=== PATIENT | male | born 1960 | race Caucasian/White ===

== ENCOUNTER 2018-05-28 07:20 | Day surgery (SDC) | payer OTHER ==
[~2018-05-28] VITALS: Ht 180.3 cm; Wt 78.5 kg
[~2018-05-28 07:20] MED LIST: ETAN50I; FOLI1 PO; IBUP800 PO; LISI5 PO; SYNTHROID175 MCG PO
[2018-05-28] MEDS ORDERED: LOSA50 (07:50)
[2018-05-28] MEDS ORDERED: METO50ER (07:50)
[2018-05-28] MEDS ORDERED: METF500C (07:51)
[2018-05-28] MEDS ORDERED: METTREX2.5 (07:51)
== END 2018-05-28 09:52 | disposition home or self-care (01) ==
LOC: ORSCSDS 07:20
PROVIDERS: Surgery
PROC: 0DBK8ZX Excision of Ascending Colon, Via Natural or Artificial Opening Endoscopic, Diagnostic (ICD-10-PCS; principal; 2018-05-28 08:30)
PROC: 0DBP8ZX Excision of Rectum, Via Natural or Artificial Opening Endoscopic, Diagnostic (ICD-10-PCS; principal; 2018-05-28 08:30)
DX: Z12.11 Encounter for screening for malignant neoplasm of colon (principal); D12.2 Benign neoplasm of ascending colon; Z86.010 Personal history of colon polyps; K62.1 Rectal polyp; K57.30 Diverticulosis of large intestine without perforation or abscess without bleeding; R73.03 Prediabetes; E03.9 Hypothyroidism, unspecified; I10 Essential (primary) hypertension; F17.210 Nicotine dependence, cigarettes, uncomplicated; Z79.84 Long term (current) use of oral hypoglycemic drugs; Z79.899 Other long term (current) drug therapy
CPT/HCPCS: 82947; 88305; J7120

== ENCOUNTER 2020-01-31 11:33 | Inpatient (IN) | payer OTHER ==
[~2020-01-31] VITALS: Ht 175.3 cm; Wt 78.2 kg
[~2020-01-31 11:33] MED LIST changes: +LOSA50; +METF500C; +METO50ER; +METTREX2.5
[2020-01-31] MEDS ORDERED: METO100ER PO (12:43)
[2020-01-31] MEDS ORDERED: Synthroid200 MCG PO (12:43)
[2020-01-31] MEDS ORDERED: Methotrexate2.5 MG PO (12:44)
[2020-01-31] MEDS ORDERED: FOLI1 PO (12:44)
[2020-01-31 12:51] LABS: BASOPHILS ABSOLUTE AUTO 0.09 K/mm3 (0.00-0.23); BASOPHILS PERCENT AUTO 1 % (0-2); EOSINOPHILS ABSOLUTE AUTO 0.35 K/mm3 (0.00-0.68); EOSINOPHILS PERCENT AUTO 4 % (0-6); Hemoglobin 16.7 g/dL (13.5-17.5); IMMATURE GRAN ABSOLUTE AUTO 0.02 K/mm3 (0.00-0.10); IMMATURE GRAN PERCENT AUTO 0 % (0-1); LYMPHOCYTES ABSOLUTE AUTO 2.03 K/mm3 (0.84-5.20); LYMPHOCYTES PERCENT AUTO 24 % (21-46); MONOCYTES ABSOLUTE AUTO 0.92 K/mm3 (0.16-1.47); MONOCYTES PERCENT AUTO 11 % (4-13); Mean Corpuscular HGB 30.2 pg (26.0-34.0); Mean Corpuscular HGB Conc 32.1 g/dL (31.5-36.5); Mean Corpuscular Volume 94 fL (80-100); Mean Platelet Volume 9.5 fL (9.1-12.4); NEUTROPHILS ABSOLUTE AUTO 5.18 K/mm3 (1.96-9.15); NEUTROPHILS PERCENT AUTO 60 % (41-73); Platelet Count 279 K/mm3 (150-400); RDW Coefficient Variation 13.2 % (11.7-14.2); RDW Standard Deviation 46.5 fL (35.1-46.3); Red Blood Cell Count 5.53 M/mm3 (4.30-5.90); White Blood Cell Count 8.59 K/mm3 (4.00-11.30)
[2020-01-31 13:01] LABS: International Normalized Ratio 1.03
[2020-01-31 13:15] LABS: Alanine Aminotransfer (ALT/SGP 20 U/L (12-78); Albumin, Blood 3.3 g/dL (3.4-5.0); Albumin/Globulin Ratio 0.7 (0.8-1.8); Alk Phos 76 U/L (50-136); Anion Gap 4 mmol/L (6-16); Aspartate Aminotrans (AST/SGOT 18 U/L (12-37); Bilirubin, Total 0.4 mg/dL (0.1-1.0); Blood Urea Nitrogen 11 mg/dL (8-24); Bun/Creatinine Ratio 15.5 (12.0-20.0); CO2, Blood 27 mmol/L (21-32); Calcium, Blood 8.9 mg/dL (8.5-10.1); Chloride, Blood 107 mmol/L (98-108); Creatinine, Blood 0.71 mg/dL (0.60-1.20); Globulin, Blood 4.8 g/dL (2.2-4.0); Glomerular Filtration Rate >60 (60-); Glucose, Blood 165 mg/dL (70-99); Sodium, Blood 138 mmol/L (136-145); Total Protein, Blood 8.1 g/dL (6.4-8.2)
[2020-01-31] MEDS ORDERED: ENBREL50 MG/1 M2 SC (13:19)
--- NOTE | 2020-01-31 17:37 | NUR ---
SHIFT SUMMARY PT ALERT AND ORIENTED. VS STABLE. HR NSR. PT DENIES ANY PAIN. PT REPORTS SLIGHT DOUBLE VISION AND DIFFICULTY READING. PT ABLE TO COMMUNICATE NEEDS, BUT OCCASIONAL SLURRED SPEECH AND DIFFICULTY EXPRESSING HIS NEEDS. PT INDEPENDENT IN THE ROOM. PLAN FOR MRI THIS AFTERNOON. WILL CONTINUE TO MONITOR AND REPORT TO ONCOMING RN. CALL LIGHT IN REACH.
[2020-02-01 03:54] LABS: BASOPHILS ABSOLUTE AUTO 0.12 K/mm3 (0.00-0.23); BASOPHILS PERCENT AUTO 2 % (0-2); EOSINOPHILS ABSOLUTE AUTO 0.52 K/mm3 (0.00-0.68); EOSINOPHILS PERCENT AUTO 7 % (0-6); Hematocrit 45.6 % (37.0-53.0); IMMATURE GRAN ABSOLUTE AUTO 0.01 K/mm3 (0.00-0.10); IMMATURE GRAN PERCENT AUTO 0 % (0-1); LYMPHOCYTES ABSOLUTE AUTO 2.59 K/mm3 (0.84-5.20); LYMPHOCYTES PERCENT AUTO 35 % (21-46); MONOCYTES ABSOLUTE AUTO 0.81 K/mm3 (0.16-1.47); MONOCYTES PERCENT AUTO 11 % (4-13); Mean Corpuscular HGB 30.9 pg (26.0-34.0); Mean Corpuscular HGB Conc 32.9 g/dL (31.5-36.5); Mean Corpuscular Volume 94 fL (80-100); Mean Platelet Volume 9.9 fL (9.1-12.4); NEUTROPHILS ABSOLUTE AUTO 3.28 K/mm3 (1.96-9.15); NEUTROPHILS PERCENT AUTO 45 % (41-73); Platelet Count 256 K/mm3 (150-400); RDW Coefficient Variation 13.2 % (11.7-14.2); RDW Standard Deviation 45.7 fL (35.1-46.3); Red Blood Cell Count 4.86 M/mm3 (4.30-5.90); White Blood Cell Count 7.33 K/mm3 (4.00-11.30)
[2020-02-01 04:18] LABS: Anion Gap 5 mmol/L (6-16); Blood Urea Nitrogen 13 mg/dL (8-24); Bun/Creatinine Ratio 16.4 (12.0-20.0); CO2, Blood 26 mmol/L (21-32); Calcium, Blood 8.2 mg/dL (8.5-10.1); Chloride, Blood 108 mmol/L (98-108); Creatinine, Blood 0.79 mg/dL (0.60-1.20); Glomerular Filtration Rate >60 (60-); Glucose, Blood 114 mg/dL (70-99); Potassium, Blood 3.5 mmol/L (3.5-5.5); Sodium, Blood 139 mmol/L (136-145)
--- NOTE | 2020-02-01 06:32 | NUR ---
SHIFT SUMMARY NO ACUTE CHANGES T/O THE NIGHT. PT IS PLEASANT AND EAGER TO GO HOME. PT REPORTS DIFFICULTY WITH READING. A/O X3. PT DENIES C/P, SOB. PT HAS NO PAIN AT THIS TIME. CALL LIGHT IN REACH.
[2020-02-01] MEDS ORDERED: ATOR20 PO (12:15)
[2020-02-01] MEDS ORDERED: ASPI81CH PO (12:15)
[2020-02-01] MEDS ORDERED: PLAVIX75 MG PO (12:15)
[2020-02-01] MEDS ORDERED: LOSA25 PO (12:16)
--- NOTE | 2020-02-01 12:45 | NUR ---
DISCHARGE ORDER PER PHYSICIAN. VS STABLE. LEFT AND RIGHT ARM IV REMOVED PRIOR TO DISCHARGE. DISCHARGE INSTRUCTIONS GIVEN BY STAFF NURSE. PT AMBULATED OUT TO LOBBY, DECLINED THE USE OF WHEELCHAIR ASSISTANCE. PT LEFT IN OWN VEHICLE.
--- NOTE | 2020-02-01 13:02 | NUR ---
DISCHARGE INTRUCTIONS PROVIDED. PT EDUCATED ON NEW MEDICATIONS AND MEDICATION CHANGES. IV REMOVED. ALL QUESTIONS ANSWERED. PT REFUSED WHEELCHAIR RIDE OUT. PT WALKED OUT.
[2020-02-02 18:28] LABS: CHOL/HDL RATIO 3.5; Cholesterol 136 mg/dL (50-200); HDL Cholesterol 39 mg/dL (>39); LDL/HDL RATIO 2.1; Low Density Lipoprotein Chol 80 mg/dL (0-110); Triglycerides 83 mg/dL (30-160); Very Low Density Lipoprot Chol 16 mg/dL (6-32)
== END 2020-02-01 12:56 | disposition home or self-care (01) | DRG 66 ==
LOC: ER 11:33 → PCU 13:29
PROVIDERS: Physician Assistant; ADMIT Internal Medicine
DX: I63.81 Other cerebral infarction due to occlusion or stenosis of small artery (principal); R47.01 Aphasia; H53.2 Diplopia; I10 Essential (primary) hypertension; F17.210 Nicotine dependence, cigarettes, uncomplicated; E03.9 Hypothyroidism, unspecified; M06.9 Rheumatoid arthritis, unspecified; E11.9 Type 2 diabetes mellitus without complications
CPT/HCPCS: 36415; 70450; 70496; 70498; 70551; 80048; 80053; 80061; 83036; 84443; 85025; 85610; 92523; 93005; 93010; 93306; 96374-59; 97161; 99285-25; A9270-GY; J1650; Q9967

== ENCOUNTER 2020-04-23 15:49 | Emergency (ER) | payer OTHER ==
[~2020-04-23] VITALS: Ht 180.3 cm; Wt 80.7 kg
[2020-04-23 16:10] LABS: Calcium, Ionized (POC) 1.04 mmol/L (1.10-1.46); Chloride (POC) 104 mmol/L (98-108); Creatinine (POC) 0.9 mg/dL (0.8-1.3); Glucose (ISTAT POC) 184 mg/dL (70-99); Hemoglobin (POC) 15.3 g/dL (13.5-17.5); Potassium (POC) 3.7 mmol/L (3.5-5.5); Sodium (POC) 137 mmol/L (135-148); Total CO2 (POC) 22 mmol/L (21-32)
[2020-04-23 16:10] LABS: BASOPHILS ABSOLUTE AUTO 0.15 K/mm3 (0.00-0.23); BASOPHILS PERCENT AUTO 2 % (0-2); EOSINOPHILS ABSOLUTE AUTO 0.38 K/mm3 (0.00-0.68); EOSINOPHILS PERCENT AUTO 4 % (0-6); Hematocrit 43.9 % (37.0-53.0); Hemoglobin 14.5 g/dL (13.5-17.5); IMMATURE GRAN ABSOLUTE AUTO 0.04 K/mm3 (0.00-0.10); IMMATURE GRAN PERCENT AUTO 0 % (0-1); LYMPHOCYTES ABSOLUTE AUTO 2.16 K/mm3 (0.84-5.20); LYMPHOCYTES PERCENT AUTO 22 % (21-46); MONOCYTES ABSOLUTE AUTO 0.84 K/mm3 (0.16-1.47); MONOCYTES PERCENT AUTO 9 % (4-13); Mean Corpuscular HGB 30.5 pg (26.0-34.0); Mean Corpuscular Volume 92 fL (80-100); Mean Platelet Volume 9.5 fL (9.1-12.4); NEUTROPHILS ABSOLUTE AUTO 6.26 K/mm3 (1.96-9.15); NEUTROPHILS PERCENT AUTO 64 % (41-73); Platelet Count 342 K/mm3 (150-400); RDW Standard Deviation 47.6 fL (35.1-46.3); Red Blood Cell Count 4.76 M/mm3 (4.30-5.90); White Blood Cell Count 9.83 K/mm3 (4.00-11.30)
[2020-04-23] MEDS ORDERED: Synthroid200 MCG PO (16:11)
[2020-04-23] MEDS ORDERED: PLAVIX75 MG PO (16:12)
[2020-04-23] MEDS ORDERED: ATOR40TA PO (16:12)
[2020-04-23] MEDS ORDERED: HYDCHL12.5 PO (16:13)
[2020-04-23] MEDS ORDERED: METO100ER PO (16:13)
[2020-04-23] MEDS ORDERED: LOSA50 PO (16:14)
[2020-04-23] MEDS ORDERED: Aspir 8181 MG PO (16:14)
[2020-04-23] MEDS ORDERED: METFORMIN HCL500 M2 PO (16:15)
[2020-04-23 16:37] LABS: International Normalized Ratio 1.05; Prothrombin Time Results 11.2 Sec (9.7-11.5)
[2020-04-23 16:45] LABS: Alanine Aminotransfer (ALT/SGP 20 U/L (12-78); Albumin, Blood 3.5 g/dL (3.4-5.0); Albumin/Globulin Ratio 0.7 (0.8-1.8); Alk Phos 88 U/L (50-136); Anion Gap 8 mmol/L (6-16); Aspartate Aminotrans (AST/SGOT 18 U/L (12-37); Bilirubin, Total 0.6 mg/dL (0.1-1.0); Blood Urea Nitrogen 19 mg/dL (8-24); Bun/Creatinine Ratio 24.1 (12.0-20.0); CO2, Blood 22 mmol/L (21-32); Calcium, Blood 9.1 mg/dL (8.5-10.1); Chloride, Blood 105 mmol/L (98-108); Creatinine, Blood 0.79 mg/dL (0.60-1.20); Globulin, Blood 5.3 g/dL (2.2-4.0); Glomerular Filtration Rate >60 (60-); Glucose, Blood 180 mg/dL (70-99); Potassium, Blood 3.7 mmol/L (3.5-5.5); Sodium, Blood 135 mmol/L (136-145); Total Protein, Blood 8.8 g/dL (6.4-8.2)
[2020-04-23] MEDS ORDERED: ENBREL50 MG/1 M2 SC (17:10)
[2020-04-23] MEDS ORDERED: Methotrexate2.5 MG PO (17:10)
== END 2020-04-23 17:16 | disposition home or self-care (01) ==
LOC: ER 15:49
PROVIDERS: Emergency Medicine; Physician Assistant
DX: R42 Dizziness and giddiness (principal); R11.2 Nausea with vomiting, unspecified; I69.398 Other sequelae of cerebral infarction; R48.0 Dyslexia and alexia; F17.210 Nicotine dependence, cigarettes, uncomplicated; Z79.02 Long term (current) use of antithrombotics/antiplatelets; Z79.82 Long term (current) use of aspirin; Z79.84 Long term (current) use of oral hypoglycemic drugs; Z79.899 Other long term (current) drug therapy
CPT/HCPCS: 36415; 70450; 70496; 70498; 80047; 80053; 82947; 85014; 85025; 85610; 93005; 93010; 96374; 99284-25; J2405; Q9967